=== PATIENT | female | born 1960 | race Caucasian/White ===

== ENCOUNTER 2017-03-07 10:16 | Emergency (ER) | payer BC, OTHER ==
[2017-03-07] MEDS ORDERED: Sodium Chloride 0.9% 10 ML Syringe FLUSH PRN (10:29)
[2017-03-07] MEDS ORDERED: Furosemide 40 MG/4 ML VIAL IVPUSH ONE (10:30)
--- NOTE | 2017-03-07 10:33 | EDM.PDOC ---
ED HPI GENERAL MEDICAL PROBLEM - General Chief Complaint: General Stated Complaint: IN BY AMBULANCE Time Seen by Provider: 03/07/17 10:25 Source of Information: Reports: Patient, EMS, Family ( and daughter), Old Records, Provider (Dr. Martinez), RN, RN Notes Reviewed History Limitations: Reports: Physical Impairment - History of Present Illness INITIAL COMMENTS - FREE TEXT/NARRATIVE: Arrives from home by ambulance with report that pt either fell or slid to the floor this morning after her had left the house and she could not get back up. found her on the floor approx. 45 minutes later. Pt was just discharged from [facility] a few days ago where she was admitted for abdominal pain and ascites. The family states they do not believe she was well enough to be discharged, but the [facility] hospitalist told them there was nothing more that could be done for her and sent her home. Since returning home she reports increasing abdominal size, weeping of clear/yellow fluid from the legs, and severe shortness of breath. Pt's has found her to be more confused than usual over the past few days. Denies fever or chills. Pt is able to give limited Hx due to dyspnea. Onset: Unknown/Unsure Onset Date: 03/07/17 Duration: Constant, Getting Worse Location: Reports: Chest, Generalized Severity: Severe Improves with: Reports: None Worsens with: Reports: None Generalized Pain Score (Numeric/FACES): 10 - Related Data Allergies Allergy/AdvReac Type Severity Reaction Status Date / Time No Known Allergies Allergy Verified 06/21/15 17:16 Home Meds: Home Meds Lactulose [Chronulac] 30 gm PO TID 10/21/14 [History] Potassium Chloride [Klor-Con M20] 20 meq PO TID 10/21/14 [History] Spironolactone [Aldactone] 50 mg PO BID 10/21/14 [History] Cyclobenzaprine [Flexeril] 10 mg PO TID PRN 04/11/15 [History] Pantoprazole Sodium 40 mg PO DAILY 04/11/15 [History] Zinc 1 mg PO DAILY 04/11/15 [History] Folic Acid 1 mg PO DAILY 05/21/15 [History] Furosemide 80 mg PO DAILY 05/21/15 [History] Ondansetron [Zofran ODT] 4 mg PO Q8H 05/21/15 [History] Prochlorperazine Maleate [Compazine] 10 mg PO Q6H 05/21/15 [History] Sennosides/Docusate Sodium [Senna-S] 1 tab PO DAILY 05/21/15 [History] Temazepam 30 mg PO BEDTIME 05/21/15 [History] Multivitamin [Multi-Day Vitamins] 1 tab PO DAILY 03/07/17 [History] Past Medical History HEENT History: Reports: None Cardiovascular History: Reports: None Respiratory History: Reports: None Gastrointestinal History: Reports: Cirrhosis, GERD Other Gastrointestinal History: autoimmune disease affecting liver Other Genitourinary History: 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, benign 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 Other Musculoskeletal History: DDD Neurological History: Reports: None Psychiatric History: Reports: None Endocrine/Metabolic History: Reports: Obesity/BMI 30+ Hematologic History: Reports: None Immunologic History: Reports: Other (See Below) Other Immunologic History: Auto-immune disease Oncologic (Cancer) History: Reports: None Dermatologic History: Reports: None - Past Surgical History HEENT Surgical History: Reports: None Cardiovascular Surgical History: Reports: None Female Surgical History: Reports: None Musculoskeletal Surgical History: Reports: None Social & Family History - Family History Family Medical History: Noncontributory - Tobacco Use Smoking Status *Q: Never Smoker Second Hand Smoke Exposure: No - Caffeine Use Caffeine Use: Reports: Coffee - Alcohol Use Days Per Week of Alcohol Use: 0 Number of Drinks Per Day: 1 Total Drinks Per Week: 0 - Recreational Drug Use Recreational Drug Use: No - Living Situation & Occupation Living situation: Reports: , with Spouse Occupation: Unemployed ED ROS GENERAL - Review of Systems Review Of Systems: ROS reveals no pertinent complaints other than HPI. ED EXAM, GENERAL - Physical Exam Exam: See Below Exam Limited By: Respiratory Distress General Appearance: Alert, Anxious, Mild Distress, Other (chronically ill and toxic appearing) Eye Exam: Bilateral Eye: EOMI, PERRL, Other (scleral icterus) Ears: Hearing Grossly Normal Nose: Normal Inspection, Normal Mucosa, No Blood Throat/Mouth: Normal Lips, Normal Oropharynx, Normal Voice, No Airway Compromise , Other (dry oral membranes) Head: Atraumatic, Normocephalic Neck: Normal Inspection, Non-Tender Respiratory/Chest: Chest Non-Tender, Decreased Breath Sounds (abscent breath sounds at left base), Crackles, Rales, Accessory Muscle Use Cardiovascular: Regular Rate, Rhythm GI/Abdominal: Soft, No Distention, Tender (generalized), Other (massive ascites fluid wave) (Female) Exam: Deferred Rectal (Female) Exam: Deferred Extremities: Other (+3 pitting edema at B/L lower to the pelvis with serous weeping at the lower legs) Neurological: Alert, Oriented (to person and place), CN II-XII Intact, Confused (slight confusion, mostly answers appropriately) Psychiatric: Anxious Skin Exam: Jaundice Course - Vital Signs Last Recorded V/S: Last Vital Signs Temp 36.6 C 03/07/17 10:23 Pulse 82 03/07/17 10:23 Resp 36 H 03/07/17 10:23 BP 85/49 L 03/07/17 10:23 Pulse Ox 100 03/07/17 10:23 BP improved to 130's systolic prior to transfer. - Orders/Labs/Meds Orders: Active Orders 24 hr Category Date Time Status Peripheral IV Care [RC] . DIRECTED Care 03/07/17 10:29 Active RT Aerosol Therapy [RC] ASDIRECTED Care 03/07/17 11:16 Active CULTURE BLOOD [BC] Stat Lab 03/07/17 10:40 Received CULTURE BLOOD [BC] Stat Lab 03/07/17 10:55 Received Levofloxacin/Dextrose 5%-Water [Levaquin in D5W 500 MG/ Med 03/07/17 11:29 Active 100 ML] 500 mg Premix Bag 1 bag IV ONETIME Sodium Chloride 0.9% [Saline Flush] Med 03/07/17 10:29 Active 10 ml FLUSH ASDIRECTED PRN Blood Culture x2 Reflex Set [OM.PC] Stat Oth 03/07/17 10:29 Ordered Peripheral IV Insertion Adult [OM.PC] Stat Oth 03/07/17 10:28 Ordered Medication Orders Levofloxacin/Dextrose 500 mg/ (Premix) 100 mls @ 100 mls/hr IV ONETIME ONE Stop: 03/07/17 12:28 Last Admin: 03/07/17 11:34 Dose: 100 mls/hr Sodium Chloride (Saline Flush) 10 ml FLUSH ASDIRECTED PRN PRN Reason: Keep Vein Open Last Admin: 03/07/17 10:41 Dose: 10 ml Labs: Laboratory Tests 03/07/17 03/07/17 03/07/17 Range/Units 10:36 10:36 10:40 WBC 16.5 H (5.0-10.0) 10^3/uL RBC 3.13 L (4.2-5.4) 10^6/uL Hgb 10.9 L (12.0-16.0) g/dL Hct 31.4 L (37.0-47.0) % MCV 100.3 H D (80-100) fL MCH 34.8 H (27.0-34.0) pg MCHC 34.7 (33.0-35.0) g/dL Plt Count 316 D (150-450) 10^3/uL Neut % (Auto) 78.0 H (42.2-75.2) % Lymph % (Auto) 9.7 L (20.5-50.1) % Cross % (Auto) 11.6 H (2-8) % Eos % (Auto) 0.4 L (1.0-3.0) % Baso % (Auto) 0.3 (0.0-1.0) % Add Manual Diff Yes Neutrophils % (Manual) 77 H (42-75) % Band Neutrophils % 5 % Lymphocytes % (Manual) 8 L (20-50) % Monocytes % (Manual) 10 H (2-8) % Target Cells 1+ slight [place] Cells PT (9.0-12.0) SEC INR (0.9-1.2) APTT (22.0-34.0) SEC Sodium (135-145) mmol/L Potassium (3.6-5.0) mmol/L Chloride (101-111) mmol/L Carbon Dioxide (21.0-31.0) mmol/L Anion Gap BUN (7-18) mg/dL Creatinine (0.6-1.3) mg/dL Est Cr Clr Drug Dosing mL/min Estimated GFR (MDRD) BUN/Creatinine Ratio Glucose (74-105) mg/dL Lactic Acid (0.5-2.2) mmol/L Calcium (8.4-10.2) mg/dl Total Bilirubin (0.2-1.0) mg/dL AST (10-42) IU/L ALT (10-60) IU/L Alkaline Phosphatase (42-121) IU/L Ammonia (11-35) umol/L B-Natriuretic Peptide (0-100) pg/ml Total Protein (6.7-8.2) g/dl Albumin (3.2-5.5) g/dl Globulin Albumin/Globulin Ratio Amylase (28-100) U/L Lipase (22-51) U/L Urine Color Straw (YELLOW) Urine Appearance Slightly cloudy (CLEAR) Urine pH 5.0 (5.0-9.0) Ur Specific Stella 1.020 (1.005-1.030) Urine Protein Negative (NEGATIVE) Urine Glucose (UA) Negative (NEGATIVE) Urine Ketones Negative (NEGATIVE) Urine Occult Blood Trace-lysed H (NEGATIVE) Urine Nitrite Negative (NEGATIVE) Urine Bilirubin Small H (NEGATIVE) Urine Urobilinogen 0.2 (0.2-1.0) mg/dL Ur Leukocyte Esterase Negative (NEGATIVE) Urine RBC 0-5 /HPF Urine WBC 0-5 (0-5/HPF) /HPF Ur Epithelial Cells Moderate H /HPF Urine Bacteria Few (0-FEW/HPF) /HPF Hyaline Casts See note /LPF Urine Mucus Occasional /LPF Urine Opiates Screen Negative (NEGATIVE) Ur Oxycodone Screen Positive H (NEGATIVE) Urine Methadone Screen Negative (NEGATIVE) Ur Barbiturates Screen Negative (NEGATIVE) U Tricyclic Antidepress Positive H (NEGATIVE) Ur Phencyclidine Scrn Negative (NEGATIVE) Ur Amphetamine Screen Negative (NEGATIVE) U Methamphetamines Scrn Negative (NEGATIVE) Urine MDMA Screen Negative (NEGATIVE) U Benzodiazepines Scrn Negative (NEGATIVE) Urine Cocaine Screen Negative (NEGATIVE) U Marijuana (THC) Screen Negative (NEGATIVE) 03/07/17 03/07/17 03/07/17 Range/Units 10:40 10:40 10:40 WBC (5.0-10.0) 10^3/uL RBC (4.2-5.4) 10^6/uL Hgb (12.0-16.0) g/dL Hct (37.0-47.0) % MCV (80-100) fL MCH (27.0-34.0) pg MCHC (33.0-35.0) g/dL Plt Count (150-450) 10^3/uL Neut % (Auto) (42.2-75.2) % Lymph % (Auto) (20.5-50.1) % Cross % (Auto) (2-8) % Eos % (Auto) (1.0-3.0) % Baso % (Auto) (0.0-1.0) % Add Manual Diff Neutrophils % (Manual) (42-75) % Band Neutrophils % % Lymphocytes % (Manual) (20-50) % Monocytes % (Manual) (2-8) % Target Cells [place] Cells PT 15.2 H (9.0-12.0) SEC INR 1.5 H (0.9-1.2) APTT 32.5 (22.0-34.0) SEC Sodium 129 L (135-145) mmol/L Potassium 7.9 H* D (3.6-5.0) mmol/L Chloride 99 L (101-111) mmol/L Carbon Dioxide 14.0 L (21.0-31.0) mmol/L Anion Gap 23.9 BUN 55 H D (7-18) mg/dL Creatinine 3.9 H D (0.6-1.3) mg/dL Est Cr Clr Drug Dosing 11.71 mL/min Estimated GFR (MDRD) 12 BUN/Creatinine Ratio 14.10 Glucose 106 H (74-105) mg/dL Lactic Acid (0.5-2.2) mmol/L Calcium 8.8 (8.4-10.2) mg/dl Total Bilirubin 15.8 H (0.2-1.0) mg/dL AST 456 H (10-42) IU/L ALT 115 H (10-60) IU/L Alkaline Phosphatase 170 H (42-121) IU/L Ammonia 29 (11-35) umol/L B-Natriuretic Peptide 614 H (0-100) pg/ml Total Protein 6.3 L (6.7-8.2) g/dl Albumin 2.3 L (3.2-5.5) g/dl Globulin 4.0 Albumin/Globulin Ratio 0.58 Amylase 168 H (28-100) U/L Lipase 147 H (22-51) U/L Urine Color (YELLOW) Urine Appearance (CLEAR) Urine pH (5.0-9.0) Ur Specific Stella (1.005-1.030) Urine Protein (NEGATIVE) Urine Glucose (UA) (NEGATIVE) Urine Ketones (NEGATIVE) Urine Occult Blood (NEGATIVE) Urine Nitrite (NEGATIVE) Urine Bilirubin (NEGATIVE) Urine Urobilinogen (0.2-1.0) mg/dL Ur Leukocyte Esterase (NEGATIVE) Urine RBC /HPF Urine WBC (0-5/HPF) /HPF Ur Epithelial Cells /HPF Urine Bacteria (0-FEW/HPF) /HPF Hyaline Casts /LPF Urine Mucus /LPF Urine Opiates Screen (NEGATIVE) Ur Oxycodone Screen (NEGATIVE) Urine Methadone Screen (NEGATIVE) Ur Barbiturates Screen (NEGATIVE) U Tricyclic Antidepress (NEGATIVE) Ur Phencyclidine Scrn (NEGATIVE) Ur Amphetamine Screen (NEGATIVE) U Methamphetamines Scrn (NEGATIVE) Urine MDMA Screen (NEGATIVE) U Benzodiazepines Scrn (NEGATIVE) Urine Cocaine Screen (NEGATIVE) U Marijuana (THC) Screen (NEGATIVE) 03/07/17 Range/Units 10:40 WBC (5.0-10.0) 10^3/uL RBC (4.2-5.4) 10^6/uL Hgb (12.0-16.0) g/dL Hct (37.0-47.0) % MCV (80-100) fL MCH (27.0-34.0) pg MCHC (33.0-35.0) g/dL Plt Count (150-450) 10^3/uL Neut % (Auto) (42.2-75.2) % Lymph % (Auto) (20.5-50.1) % Cross % (Auto) (2-8) % Eos % (Auto) (1.0-3.0) % Baso % (Auto) (0.0-1.0) % Add Manual Diff Neutrophils % (Manual) (42-75) % Band Neutrophils % % Lymphocytes % (Manual) (20-50) % Monocytes % (Manual) (2-8) % Target Cells [place] Cells PT (9.0-12.0) SEC INR (0.9-1.2) APTT (22.0-34.0) SEC Sodium (135-145) mmol/L Potassium (3.6-5.0) mmol/L Chloride (101-111) mmol/L Carbon Dioxide (21.0-31.0) mmol/L Anion Gap BUN (7-18) mg/dL Creatinine (0.6-1.3) mg/dL Est Cr Clr Drug Dosing mL/min Estimated GFR (MDRD) BUN/Creatinine Ratio Glucose (74-105) mg/dL Lactic Acid 5.3 H (0.5-2.2) mmol/L Calcium (8.4-10.2) mg/dl Total Bilirubin (0.2-1.0) mg/dL AST (10-42) IU/L ALT (10-60) IU/L Alkaline Phosphatase (42-121) IU/L Ammonia (11-35) umol/L B-Natriuretic Peptide (0-100) pg/ml Total Protein (6.7-8.2) g/dl Albumin (3.2-5.5) g/dl Globulin Albumin/Globulin Ratio Amylase (28-100) U/L Lipase (22-51) U/L Urine Color (YELLOW) Urine Appearance (CLEAR) Urine pH (5.0-9.0) Ur Specific Stella (1.005-1.030) Urine Protein (NEGATIVE) Urine Glucose (UA) (NEGATIVE) Urine Ketones (NEGATIVE) Urine Occult Blood (NEGATIVE) Urine Nitrite (NEGATIVE) Urine Bilirubin (NEGATIVE) Urine Urobilinogen (0.2-1.0) mg/dL Ur Leukocyte Esterase (NEGATIVE) Urine RBC /HPF Urine WBC (0-5/HPF) /HPF Ur Epithelial Cells /HPF Urine Bacteria (0-FEW/HPF) /HPF Hyaline Casts /LPF Urine Mucus /LPF Urine Opiates Screen (NEGATIVE) Ur Oxycodone Screen (NEGATIVE) Urine Methadone Screen (NEGATIVE) Ur Barbiturates Screen (NEGATIVE) U Tricyclic Antidepress (NEGATIVE) Ur Phencyclidine Scrn (NEGATIVE) Ur Amphetamine Screen (NEGATIVE) U Methamphetamines Scrn (NEGATIVE) Urine MDMA Screen (NEGATIVE) U Benzodiazepines Scrn (NEGATIVE) Urine Cocaine Screen (NEGATIVE) U Marijuana (THC) Screen (NEGATIVE) Meds: Medications Generic Name Dose Route Start Last Admin Trade Name Freq PRN Reason Stop Dose Admin Levofloxacin/Dextrose 500 mg/ 100 mls @ 100 mls/hr 03/07/17 11:29 03/07/17 11 :34 Premix IV 03/07/17 12:28 100 mls/hr ONETIME ONE Administration Sodium Chloride 10 ml 03/07/17 10:29 03/07/17 10:41 Saline Flush FLUSH 10 ml ASDIRECTED PRN Administration Keep Vein Open Discontinued Medications Generic Name Dose Route Start Last Admin Trade Name Dago PRN Reason Stop Dose Admin Albuterol 10 mg 03/07/17 11:15 03/07/17 11:28 Proventil Neb Soln NEB 03/07/17 11:16 10 mg ONETIME ONE Administration Calcium Chloride 1 gm 03/07/17 11:18 03/07/17 11:27 Calcium Chloride 10% IVPUSH 03/07/17 11:19 1 gm ONETIME ONE Administration Furosemide 60 mg 03/07/17 10:30 03/07/17 10:41 Lasix IVPUSH 03/07/17 10:31 60 mg NOW ONE Administration Sodium Bicarbonate 50 meq 03/07/17 11:33 03/07/17 11:38 Sodium Bicarbonate 8.4% IVPUSH 03/07/17 11:34 50 meq ONETIME ONE Administration Sodium Polystyrene Sulfonate 45 gm 03/07/17 11:16 03/07/17 11:27 Kayexalate PO 03/07/17 11:17 45 gm NOW ONE Administration - Radiology Interpretation Free Text/Narrative:: CXR: poor insp. effort, large left base infiltrate/effusion, see Rad. report. - Re-Assessments/Exams Free Text/Narrative Re-Assessment/Exam: 03/07/17 12:05 I explained to the pt's and daughter the exam and lab findings and that the pt's condition is critical. Airlift cannot fly due to weather/temperature. Ground transportation is present to transfer pt. to [facility] with Dr. Frederick accepting the pt as a direct admit to the ICU. Dr. Frederick has been up dated regarding the pt's condition and lab/xray results. Departure - Departure Time of Disposition: 11:00 Disposition: DC/Tfer to Acute Hospital 02 Condition: Critical Clinical Impression: Sepsis due to pneumonia, Autoimmune liver disease, Hyperkalemia, Hepatorenal failure Cirrhosis of liver with ascites Qualifiers: Hepatic cirrhosis type: unspecified hepatic cirrhosis Qualified Code(s): K74.60 - Unspecified cirrhosis of liver - Discharge Information Forms: ED Department Discharge, Interfacility Transfer EMTALA - My Orders Last 24 Hours: My Active Orders 03/07/17 10:28 Peripheral IV Insertion Adult [OM.PC] Stat 03/07/17 10:29 Peripheral IV Care [RC] . DIRECTED Sodium Chloride 0.9% [Saline Flush] 10 ml FLUSH ASDIRECTED PRN Blood Culture x2 Reflex Set [OM.PC] Stat 03/07/17 10:40 CULTURE BLOOD [BC] Stat 03/07/17 10:55 CULTURE BLOOD [BC] Stat 03/07/17 11:16 RT Aerosol Therapy [RC] ASDIRECTED 03/07/17 11:29 Levofloxacin/Dextrose 5%-Water [Levaquin in D5W 500 MG/100 ML] 500 mg Premix Bag 1 bag IV ONETIME - Assessment/Plan Last 24 Hours: My Active Orders 03/07/17 10:28 Peripheral IV Insertion Adult [OM.PC] Stat 03/07/17 10:29 Peripheral IV Care [RC] . DIRECTED Sodium Chloride 0.9% [Saline Flush] 10 ml FLUSH ASDIRECTED PRN Blood Culture x2 Reflex Set [OM.PC] Stat 03/07/17 10:40 CULTURE BLOOD [BC] Stat 03/07/17 10:55 CULTURE BLOOD [BC] Stat 03/07/17 11:16 RT Aerosol Therapy [RC] ASDIRECTED 03/07/17 11:29 Levofloxacin/Dextrose 5%-Water [Levaquin in D5W 500 MG/100 ML] 500 mg Premix Bag 1 bag IV ONETIME
[2017-03-07 10:39] VITALS: BP 85/49
--- NOTE | 2017-03-07 11:07 | CR ---
Clinical history: 56-year-old dyspneic female. Interpretation: Upright AP portable chest film (rotation) is abnormal. Less than optimal inspiratory effort this pickwickian appearing patient with asymmetric new left lowe r lobe consolidation compared to 06 December 2013 exam. Clinical pneumonia? Serum D dimer? Blunting costophrenic sulci possibly reflecting poor inspiratory effort. No increase in heart size or signs of alveolar edema. No other focal lobar consolidation, lung mass or hilar lymphadenopathy.
[2017-03-07] MEDS ORDERED: Albuterol 0.083% 2.5 MG/3 ML Neb Soln NEB ONE (11:15)
[2017-03-07] MEDS ORDERED: Sodium Polystyrene Sulfonate 15 GM/60 ML Susp 60 ML Bot PO ONE (11:16)
[2017-03-07] MEDS ORDERED: Calcium Chloride 10% 1 GM/10 ML Syringe IVPUSH ONE (11:18)
[2017-03-07] MEDS ORDERED: Levofloxacin/Dextrose 5%-Water 500 MG in Premix Bag 1 BAG IV ONE (11:29)
[2017-03-07] MEDS ORDERED: Sodium Bicarbonate 8.4% 50 MEQ/50 ML Syringe IVPUSH ONE (11:33)
== END 2017-03-07 11:57 ==
LOC: DL.ED 10:16
DX: A41.9 Sepsis, unspecified organism (principal); J18.9 Pneumonia, unspecified organism; K76.7 Hepatorenal syndrome; K74.60 Unspecified cirrhosis of liver; Z79.899 Other long term (current) drug therapy
CPT/HCPCS: 36415; 71010; 80053; 80305; 81001; 82140; 82150; 83605; 83690; 83880; 85025; 85610; 85730; 87040; 96374; 96375; 99285; A9270; J1940; J1956; J7050; J7620

== ENCOUNTER 2017-06-04 11:14 | Inpatient (IN) | payer BC, MEDICARE ==
--- NOTE | 2017-06-04 16:04 | PCM.HP ---
H&P History of Present Illness - General Date of Service: 06/04/17 Admit Problem/Dx: Admission Diagnosis/Problem Admission Diagnosis/Problem Weakness Source of Information: Patient History Limitations: Reports: No Limitations - History of Present Illness Initial Comments - Free Text/Narative: The patient is a 56-year-old lady who presented with right-sided chest pain associated with shortness of breath. She was found to have right-sided pleural effusion It is in the setting of recent liver transplant for nonalcoholic steatohepatitis ( CORCORAN). She had placement of a right-sided chest tube because of pleural effusion. The patient became weak during hospitalization. She is transferred to [facility] for physical and occupational therapy. At this time the patient offers no new complaints. Indicates that she feels weak Onset of Symptoms: Reports: Gradual Duration of Symptoms: Reports: Constant Severity: Moderate Context: Reports: Other Associated Symptoms: Reports: Malaise - Related Data Allergies/Adverse Reactions: Allergies Allergy/AdvReac Type Severity Reaction Status Date / Time No Known Allergies Allergy Verified 06/21/15 17:16 Home Medications: Home Meds Lactulose [Chronulac] 30 gm PO TID 10/21/14 [History] Potassium Chloride [Klor-Con M20] 20 meq PO TID 10/21/14 [History] Spironolactone [Aldactone] 50 mg PO BID 10/21/14 [History] Cyclobenzaprine [Flexeril] 10 mg PO TID PRN 04/11/15 [History] Pantoprazole Sodium 40 mg PO DAILY 04/11/15 [History] Zinc 1 mg PO DAILY 04/11/15 [History] Folic Acid 1 mg PO DAILY 05/21/15 [History] Furosemide 80 mg PO DAILY 05/21/15 [History] Ondansetron [Zofran ODT] 4 mg PO Q8H 05/21/15 [History] Prochlorperazine Maleate [Compazine] 10 mg PO Q6H 05/21/15 [History] Sennosides/Docusate Sodium [Senna-S] 1 tab PO DAILY 05/21/15 [History] Temazepam 30 mg PO BEDTIME 05/21/15 [History] Multivitamin [Multi-Day Vitamins] 1 tab PO DAILY 03/07/17 [History] Past Medical History HEENT History: Reports: None Cardiovascular History: Reports: Afib Other Cardiovascular History: a-fib after surgery 03/19/17 Respiratory History: Reports: None Gastrointestinal History: Reports: Cirrhosis, GERD Other Gastrointestinal History: autoimmune disease affecting liver Other Genitourinary History: 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, benign 2014 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 Musculoskeletal History: Reports: Back Pain, Chronic Other Musculoskeletal History: DDD Neurological History: Reports: None Psychiatric History: Reports: None Endocrine/Metabolic History: Reports: Obesity/BMI 30+ Hematologic History: Reports: Blood Transfusion(s) Immunologic History: Reports: Other (See Below) Other Immunologic History: Auto-immune disease Oncologic (Cancer) History: Reports: None Dermatologic History: Reports: None - Past Surgical History HEENT Surgical History: Reports: None Cardiovascular Surgical History: Reports: None GI Surgical History: Reports: Other (See Below) Other GI Surgeries/Procedures: liver transplant 03/19/17 Female Surgical History: Reports: None Musculoskeletal Surgical History: Reports: None Social & Family History - Family History Family Medical History: Noncontributory - Tobacco Use Smoking Status *Q: Never Smoker Second Hand Smoke Exposure: No - Caffeine Use Caffeine Use: Reports: Coffee, Soda - Alcohol Use Days Per Week of Alcohol Use: 0 Number of Drinks Per Day: 1 Total Drinks Per Week: 0 - Recreational Drug Use Recreational Drug Use: No - Living Situation & Occupation Living situation: Reports: , with Spouse Occupation: Unemployed H&P Review of Systems - Review of Systems: Review Of Systems: See Below General: Reports: No Symptoms HEENT: Reports: No Symptoms Pulmonary: Reports: No Symptoms Cardiovascular: Reports: No Symptoms Gastrointestinal: Reports: No Symptoms Musculoskeletal: Reports: No Symptoms Skin: Reports: No Symptoms Psychiatric: Reports: No Symptoms Neurological: Reports: No Symptoms Exam - Exam Exam: See Below - Vital Signs Vital Signs: Last Vital Signs Temp 36.8 C 06/04/17 15:13 Pulse 66 06/04/17 15:13 Resp 20 06/04/17 15:13 BP 125/62 06/04/17 15:13 Pulse Ox 99 06/04/17 15:13 Weight: 63.276 kg - Exam General: Alert, Oriented HEENT: Conjunctiva Clear Neck: Supple Lungs: Clear to Auscultation, Decreased Breath Sounds Cardiovascular: Regular Rate, Regular Rhythm GI/Abdominal Exam: Soft, Non-Tender Extremities: Pedal Edema Psychiatric: Alert, Normal Affect *Q Meaningful Use (ADM) - VTE *Q VTE Criteria *Q: - Stroke *Q Stroke Criteria *Q: - AMI *Q AMI Criteria *Q: Problem List Initiated/Reviewed/Updated: Yes Orders Last 24hrs: Active Orders 24 hr Category Date Time Status Patient Status [ADT] Routine ADT 06/04/17 15:47 Ordered Oxygen Therapy [RC] PRN Care 06/04/17 15:47 Ordered Up ad Tammy [RC] ASDIRECTED Care 06/04/17 15:46 Ordered VTE/DVT Education [RC] PER UNIT ROUTINE Care 06/04/17 15:47 Ordered Vital Signs [RC] Q8H Care 06/04/17 15:46 Ordered OT Evaluation and Treatment [CONS] Routine Cons 06/04/17 15:46 Ordered PT Evaluation and Treatment [CONS] Routine Cons 06/04/17 15:46 Ordered Regular Diet [DIET] Diet 06/04/17 Lunch Ordered BASIC METABOLIC PANEL,BMP [CHEM] AM Lab 06/05/17 05:11 Ordered CBC WITH AUTO DIFF [HEME] AM Lab 06/05/17 05:11 Ordered Mycophenolate Mofetil [Cellcept] Med 06/04/17 21:00 Ordered 1,000 mg PO BID Ondansetron [Zofran ODT] Med 06/04/17 15:46 Ordered 4 mg PO Q6H PRN Sulfamethoxazole/Trimethoprim [Septra DS] Med 06/05/17 09:00 Ordered 1 tab PO DAILY predniSONE Med 06/05/17 09:00 Ordered 5 mg PO DAILY Resuscitation Status Routine Resus Stat 06/04/17 15:46 Ordered Medication Orders Mycophenolate Mofetil (Cellcept) 1,000 mg PO BID DARIN Ondansetron HCl (Zofran Odt) 4 mg PO Q6H PRN PRN Reason: nausea, able to take PO Prednisone (Prednisone) 5 mg PO DAILY DARIN Trimethoprim/Sulfamethoxazole (Septra Ds) 1 tab PO DAILY DARIN Assessment/Plan Comment:: 1. Right-sided pleural effusion. This is likely causing the shortness of breath and chest pain. S/p Thoracentesis - transudative fluid Removed Chest tube Continue lasix Follow elytes and CXR periodically 2. Recent right internal jugular subclavian and axillary deep venous thrombosis. Resumed Coumadin - Adjust coumadin dose daily depending on INR for target INR 2-3 3. Metabolic acidosis, likely due to liver transplant. stable Monitor periodically 4. Liver transplant. We will continue antirejection medications including prednisone, CellCept, and Prograf. Diffuse abd/ lower chest pain use~MSContin bid Cont dilaudid PO prn The patient is significantly immunocompromised with these. We will continue Bactrim and valganciclovir. 5. History of anxiety. Continue Zoloft. 6. Leukopenia, likely due to antirejection medications. 7. Anemia. Severe on admission likely a combination of blood loss anemia from recent [facility] stay, anemia of chronic disease Was transfused 2 u prbc on 05/28 iron, b12: ok low folate - cont to replace
[2017-06-04] MEDS ORDERED: Mycophenolate Mofetil 250 MG Cap PO SCH (17:00)
[2017-06-04] MEDS: TACROLIMUS 1 MG PO SCH (21:33)
[2017-06-04] MEDS: LORazepam 0.5 MG Tab PO PRN (21:33)
[2017-06-04] MEDS: Morphine 30 MG Tab.ER PO SCH (21:33)
[2017-06-05] MEDS ORDERED: VALGANCICLOVIR 450 MG PO SCH (08:00)
[2017-06-05 10:04] LABS: CHLORIDE,CL 110 mmol/L (101-111); SODIUM,NA 137 mmol/L (135-145)
[2017-06-05] MEDS: MYCOPHENOLATE MOFETIL 500 MG PO SCH ×3 (10:25→21:16)
[2017-06-05] MEDS: predniSONE 5 MG Tab PO SCH (10:25)
[2017-06-05] MEDS: Sulfamethoxazole/Trimethoprim 800-160 MG Tab PO SCH (10:25)
[2017-06-05] MEDS: Morphine 30 MG Tab.ER PO SCH ×2 (10:25→20:54)
[2017-06-05] MEDS: TACROLIMUS 1 MG PO SCH ×2 (10:25→20:56)
[2017-06-05] MEDS ORDERED: Morphine 30 MG Tab.ER PO ONE (11:59)
[2017-06-05] MEDS ORDERED: predniSONE 5 MG Tab PO ONE (11:59)
[2017-06-05] MEDS ORDERED: Sulfamethoxazole/Trimethoprim 800-160 MG Tab PO ONE (11:59)
[2017-06-05] MEDS ORDERED: Warfarin 2 MG Tab PO ONE (20:05)
[2017-06-05] MEDS: LORazepam 0.5 MG Tab PO PRN (20:55)
[2017-06-05] MEDS: VALGANCICLOVIR 450 MG PO SCH (21:11)
[2017-06-06] MEDS: HYDROmorphone 2 MG Tab PO PRN ×4 (02:06→17:53)
[2017-06-06] MEDS: TACROLIMUS 1 MG PO SCH ×2 (09:00→20:55)
[2017-06-06] MEDS: Sulfamethoxazole/Trimethoprim 800-160 MG Tab PO SCH (09:00)
[2017-06-06] MEDS: predniSONE 5 MG Tab PO SCH (09:00)
[2017-06-06] MEDS: Morphine 30 MG Tab.ER PO SCH ×2 (09:00→20:54)
[2017-06-06] MEDS: MYCOPHENOLATE MOFETIL 500 MG PO SCH ×2 (09:01→20:55)
[2017-06-06] MEDS ORDERED: Ondansetron 4 MG Tab.DIS PO PRN (10:06)
[2017-06-06] MEDS ORDERED: Loperamide 2 MG Cap PO PRN (10:06)
[2017-06-06] MEDS ORDERED: Acetaminophen 500 MG Tab PO PRN (10:06)
[2017-06-06] MEDS ORDERED: LORazepam 0.5 MG Tab PO PRN (10:06)
[2017-06-06] MEDS: Multivitamins,Therapeutic Tab PO SCH (12:24)
[2017-06-06] MEDS: Folic Acid 1 MG Tab PO SCH (12:24)
[2017-06-06] MEDS: Furosemide 20 MG Tab PO SCH (12:24)
[2017-06-06] MEDS: Pantoprazole 40 MG Tab.CR PO SCH (12:24)
[2017-06-06] MEDS: Aspirin 81 MG Tab.EC PO SCH (12:24)
[2017-06-06] MEDS: Polyethylene Glycol 3350 Powder 17 GM Packet PO SCH (12:25)
[2017-06-06] MEDS: Potassium Chloride 10 MEQ Tab.ER PO SCH (12:25)
[2017-06-06] MEDS: Metoprolol Succinate 25 MG Tab.ER PO SCH (12:25)
[2017-06-06] MEDS: Sertraline 50 MG Tab PO SCH (12:25)
[2017-06-06] MEDS ORDERED: Warfarin 2 MG Tab PO SCH (14:00)
[2017-06-06] MEDS: Ondansetron 4 MG Tab.DIS PO PRN (15:45)
[2017-06-06] MEDS: VALGANCICLOVIR 450 MG PO SCH (20:56)
[2017-06-06] MEDS: LORazepam 0.5 MG Tab PO PRN (20:58)
[2017-06-06] MEDS ORDERED: Non-Formulary Medication 1 Each (Magnesium Oxide [Magnesium Oxide] 400 MG) PO SCH (21:00)
[2017-06-07] MEDS: HYDROmorphone 2 MG Tab PO PRN (02:12)
[2017-06-07] MEDS: Pantoprazole 40 MG Tab.CR PO SCH (05:33)
[2017-06-07] MEDS: Sertraline 50 MG Tab PO SCH (08:51)
[2017-06-07] MEDS: Metoprolol Succinate 25 MG Tab.ER PO SCH (08:51)
[2017-06-07] MEDS: TACROLIMUS 1 MG PO SCH ×2 (08:51→21:13)
[2017-06-07] MEDS: predniSONE 5 MG Tab PO SCH (08:51)
[2017-06-07] MEDS: Multivitamins,Therapeutic Tab PO SCH (08:51)
[2017-06-07] MEDS: Sulfamethoxazole/Trimethoprim 800-160 MG Tab PO SCH (08:51)
[2017-06-07] MEDS: MYCOPHENOLATE MOFETIL 500 MG PO SCH ×2 (08:52→21:14)
[2017-06-07] MEDS: Morphine 30 MG Tab.ER PO SCH (09:00)
[2017-06-07] MEDS: Ondansetron 4 MG Tab.DIS PO PRN (09:49)
[2017-06-07] MEDS ORDERED: Polyethylene Glycol 3350 Powder 17 GM Packet PO PRN (10:29)
[2017-06-07] MEDS: Polyethylene Glycol 3350 Powder 17 GM Packet PO SCH (10:40)
[2017-06-07] MEDS: Folic Acid 1 MG Tab PO SCH (10:48)
[2017-06-07] MEDS: Aspirin 81 MG Tab.EC PO SCH (10:48)
[2017-06-07 11:32] LABS: CHLORIDE,CL 108 mmol/L (101-111); SODIUM,NA 137 mmol/L (135-145)
--- NOTE | 2017-06-07 11:35 | CR ---
Clinical history: 56-year-old female with chest pain and cough. Interpretation: Abnormal. Asymmetric dense increased accumulation of dependent pleural fluid (effusion) right lung base since m ost recent chest film 07 March 2017. Some patchy underlying atelectasis but no lung mass or focal lobar pneumonia. Pulmonary infarct? D dimer? Normal cardiac silhouette without cephalization of vascular flow, signs of alveolar edema or dependen t pleural effusion on the left. No rib fracture. No pneumothorax or free subdiaphragmatic air.
[2017-06-07] MEDS: Furosemide 20 MG Tab PO SCH (13:21)
[2017-06-07] MEDS: Potassium Chloride 10 MEQ Tab.ER PO SCH (13:22)
[2017-06-07] MEDS: Phosphorus #1 250 MG Tab PO SCH (21:11)
[2017-06-07] MEDS: Morphine 15 MG Tab.ER PO SCH (21:12)
[2017-06-07] MEDS: VALGANCICLOVIR 450 MG PO SCH (21:13)
[2017-06-07] MEDS: LORazepam 0.5 MG Tab PO PRN (22:33)
[2017-06-07] MEDS: Acetaminophen 325 MG Tab PO PRN (22:33)
[2017-06-08] MEDS: Acetaminophen 325 MG Tab PO PRN ×2 (05:39→19:52)
[2017-06-08] MEDS: Pantoprazole 40 MG Tab.CR PO SCH (05:39)
[2017-06-08 07:21] LABS: CHLORIDE,CL 109 mmol/L (101-111); SODIUM,NA 138 mmol/L (135-145)
[2017-06-08] MEDS: Morphine 15 MG Tab.ER PO SCH ×2 (09:05→21:06)
[2017-06-08] MEDS: Furosemide 20 MG Tab PO SCH (09:06)
[2017-06-08] MEDS: Folic Acid 1 MG Tab PO SCH (09:06)
[2017-06-08] MEDS: Metoprolol Succinate 25 MG Tab.ER PO SCH (09:06)
[2017-06-08] MEDS: Sertraline 50 MG Tab PO SCH (09:06)
[2017-06-08] MEDS: Sulfamethoxazole/Trimethoprim 800-160 MG Tab PO SCH (09:06)
[2017-06-08] MEDS: predniSONE 5 MG Tab PO SCH (09:06)
[2017-06-08] MEDS: Phosphorus #1 250 MG Tab PO SCH ×2 (09:06→21:02)
[2017-06-08] MEDS: MYCOPHENOLATE MOFETIL 500 MG PO SCH ×2 (09:07→21:04)
[2017-06-08] MEDS: Aspirin 81 MG Tab.EC PO SCH (09:07)
[2017-06-08] MEDS: Potassium Chloride 10 MEQ Tab.ER PO SCH (09:07)
[2017-06-08] MEDS: Multivitamins,Therapeutic Tab PO SCH (09:07)
[2017-06-08] MEDS: TACROLIMUS 1 MG PO SCH ×2 (09:07→21:03)
[2017-06-08] MEDS: VALGANCICLOVIR 450 MG PO SCH (21:02)
[2017-06-08] MEDS: LORazepam 0.5 MG Tab PO PRN (21:02)
[2017-06-09] MEDS: Acetaminophen 325 MG Tab PO PRN (03:24)
[2017-06-09] MEDS: Pantoprazole 40 MG Tab.CR PO SCH (06:10)
[2017-06-09 07:51] VITALS: BP 131/63
[2017-06-09] MEDS: predniSONE 5 MG Tab PO SCH (09:12)
[2017-06-09] MEDS: Metoprolol Succinate 25 MG Tab.ER PO SCH (09:12)
[2017-06-09] MEDS: Folic Acid 1 MG Tab PO SCH (09:12)
[2017-06-09] MEDS: Furosemide 20 MG Tab PO SCH (09:13)
[2017-06-09] MEDS: Morphine 15 MG Tab.ER PO SCH (09:13)
[2017-06-09] MEDS: Potassium Chloride 10 MEQ Tab.ER PO SCH (09:13)
[2017-06-09] MEDS: Aspirin 81 MG Tab.EC PO SCH (09:13)
[2017-06-09] MEDS: Phosphorus #1 250 MG Tab PO SCH (09:13)
[2017-06-09] MEDS: Sertraline 50 MG Tab PO SCH (09:14)
[2017-06-09] MEDS: MYCOPHENOLATE MOFETIL 500 MG PO SCH (09:14)
[2017-06-09] MEDS: Sulfamethoxazole/Trimethoprim 800-160 MG Tab PO SCH (09:14)
[2017-06-09] MEDS: Multivitamins,Therapeutic Tab PO SCH (09:14)
[2017-06-09] MEDS: TACROLIMUS 1 MG PO SCH (09:15)
--- NOTE | 2017-06-09 12:05 | DISCH ---
ADMITTING DIAGNOSIS: The patient admitted to [facility] for generalized debility and weakness, to continue physical therapy while in the Swing Bed. DISCHARGE DIAGNOSES: 1. Right-sided pleural effusion, worsening while at the Swing Bed, requiring chest tube placement. 2. 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 3. Status post liver transplant, on multiple immunosuppressive therapies including prednisone. HISTORY OF PRESENT ILLNESS: Mrs. Betsey Cody is a 56-year-old female with a medical history significant for nonalcoholic steatohepatitis, requiring liver transplant at [facility]. The patient had complications with right-sided pleural effusion, requiring chest tube placement at [facility] and got discharged to the Swing Bed for continued physical therapy and occupational therapy as she continues to have weakness and tiredness. While at [facility], she was continued on physical therapy and occupational therapy, but the patient was complaining of right-sided chest pain and discomfort. Repeat chest x-ray shows worsening of right-sided pleural effusion and congestion and possible opacities, so the patient is being transferred back to [facility] for possible chest tube placement and evaluation by Infectious Disease team and also possibly getting a CT scan of the chest after the chest tube is placed to rule out any underlying infectious process. The patient remained hemodynamically stable on this admission. She is afebrile and no signs of infection identified. She continues to have neutropenia. She is discharged to [facility] in stable condition. PHYSICAL EXAMINATION: On the day of discharge: Vital Signs: Temperature of 97.1, pulse of 70, blood pressure 131/63, respiratory rate of 20, and saturating at 95% on room air. General Appearance: The patient is well oriented to time, place, and person. Follows commands spontaneously. Cardiovascular System: S1 and S2 heard with normal intensity. No gallops. Respiratory System: Clear to auscultation bilaterally except for crepitations at the bases. Dull to percussion of the right lower lobe. No wheeze. Abdomen: Soft. Bowel sounds positive. Nontender. No rigidity. Extremities: No edema in the bilateral lower extremities. Neurology: No gross focal neurological deficit. DISCHARGE MEDICATIONS: Include: 1. Tylenol 325 mg every 6 hours as needed for pain. 2. Aspirin 81 mg daily. 3. Folic acid 1 mg daily. 4. Lasix 20 mg daily. 5. Lorazepam 0.5 mg 3 times a day as needed for anxiety. 6. Magnesium oxide 400 mg daily. 7. Toprol-XL 12.5 mg daily. 8. Morphine sulfate Contin 15 mg oral q.12 hourly. 9. Multivitamin 1 tablet daily. 10.Mycophenolate 1000 mg twice a day. 11.Zofran 4 mg every 6 hours as needed for nausea. 12.Protonix 40 mg daily. 13.K-Phos 250 mg daily. 14.Polyethylene glycol 17 g oral daily. 15.Potassium chloride 20 mEq daily. 16.Zoloft 50 mg daily. 17.Bactrim 400/80 mg 1 tablet daily. 18.Tacrolimus 2 mg oral twice a day. 19.Coumadin 2 mg daily. 20.Prednisone 5 mg oral daily, alternating with tapered dose to 2.5 mg starting on 06/18/2017. 21.Valacyclovir 450 mg daily. CONDITION ON ADMISSION: Good. CONDITION ON DISCHARGE: Stable. ACTIVITY: As tolerated. DIET: Cardiac healthy diet. FOLLOWUP: Follow up with primary care physician in [address] [facility]. DISPOSITION: The patient is discharged to [facility] for a possible chest tube placement. TIME SPENT: Spent over 35 minutes of time in evaluating and treating this patient and making discharge plans. [facility] /[id number]
[2017-06-09] MEDS ORDERED: Warfarin 2 MG Tab PO ONE (14:00)
== END 2017-06-09 12:39 | DRG 861 ==
LOC: DL.MS 14:42 → UNDOADMIN 14:42 → DL.MS 15:47
PROVIDERS: ADMIT Hospitalist; ATTEND Hospitalist
DX: R53.1 Weakness (principal); R53.81 Other malaise; R53.83 Other fatigue; J90 Pleural effusion, not elsewhere classified; Z94.4 Liver transplant status; K21.9 Gastro-esophageal reflux disease without esophagitis; G89.29 Other chronic pain; M54.9 Dorsalgia, unspecified; M35.9 Systemic involvement of connective tissue, unspecified; I82.621 Acute embolism and thrombosis of deep veins of right upper extremity; E87.2 Acidosis; F41.9 Anxiety disorder, unspecified; D70.2 Other drug-induced agranulocytosis; T45.1X5A Adverse effect of antineoplastic and immunosuppressive drugs, initial encounter; T38.0X5A Adverse effect of glucocorticoids and synthetic analogues, initial encounter; D50.0 Iron deficiency anemia secondary to blood loss (chronic); D63.8 Anemia in other chronic diseases classified elsewhere; R10.9 Unspecified abdominal pain; Z79.899 Other long term (current) drug therapy
CPT/HCPCS: 36415; 71046; 80048; 83880; 84100; 85025; 85027; 85610; 97110-GO; 97110-GP; 97116-GP; 97166-GO; 97530-GO; A9270-GY

== ENCOUNTER 2017-06-26 12:21 | Emergency (ER) | payer BC, MEDICARE ==
[2017-06-26 13:15] VITALS: BP 134/76
[2017-06-26] MEDS ORDERED: Morphine 2 MG/ML Syringe IVPUSH ONE (13:36)
--- NOTE | 2017-06-26 13:41 | EDM.PDOC ---
ED HPI GENERAL MEDICAL PROBLEM - General Chief Complaint: Abdominal Pain Stated Complaint: CHEST PAIN Time Seen by Provider: 06/26/17 13:02 Source of Information: Reports: Patient, Family History Limitations: Reports: No Limitations - History of Present Illness INITIAL COMMENTS - FREE TEXT/NARRATIVE: This 56 yo female patient reports to the ED with increased shortness of breath and right upper abdominal pain. The patient reports that she has a past history of a liver transplant. The patient was recently in [facility] for 2 weeks due to abdominal pain, fluid in her lungs and fluid in her abdomen, but was discharged on Sunday. The patient reports she continued to have pain and shortness of breath at discharge. The patient attempted to get into her primary care facility today, but was not able to get an appointment. The patient reports she called [facility] and was advised to come to the ED for evaluation and possible transport to [facility]. The patient's daughter was with the patient in the ED. The daughter just wants her mother to have some pain relief and make sure nothing else is happening. Duration: Week(s):, Constant, Getting Worse Location: Reports: Chest, Abdomen Quality: Reports: Ache, Sharp, Stabbing Severity: Severe Improves with: Reports: Medication Worsens with: Reports: Other (palpation) Context: Reports: Other Associated Symptoms: Reports: Shortness of Breath, Other (abdominal pain) Right Upper Abdomen Pain Score (Numeric/FACES): 8 - Related Data Allergies Allergy/AdvReac Type Severity Reaction Status Date / Time No Known Allergies Allergy Verified 06/21/15 17:16 Home Meds: Home Meds Pantoprazole Sodium 40 mg PO DAILY 04/11/15 [History] Ondansetron [Zofran ODT] 4 mg PO Q6H PRN 05/21/15 [History] Multivitamin [Multi-Day Vitamins] 1 tab PO DAILY 03/07/17 [History] LORazepam 0.5 mg PO TID PRN 06/04/17 [History] Magnesium Oxide 400 mg PO BID 06/04/17 [History] Metoprolol Succinate [Toprol XL] 12.5 mg PO DAILY 06/04/17 [History] Mycophenolate Mofetil [Cellcept] 1,000 mg PO BID 06/04/17 [History] Polyethylene Glycol 3350 [MiraLAX] 17 g PO DAILY PRN 06/04/17 [History] Sertraline [Zoloft] 50 mg PO DAILY 06/04/17 [History] Tacrolimus [Prograf] 2 mg PO BID 06/04/17 [History] Warfarin [Coumadin] 1 mg PO BEDTIME 06/04/17 [History] predniSONE [Prednisone] 5 mg PO DAILY 06/04/17 [History] valGANciclovir [Valcyte] 450 mg PO BEDTIME 06/04/17 [History] Aspirin 81 mg PO DAILY 06/06/17 [History] Acetaminophen [Tylenol] 325 mg PO Q6H PRN tablet 06/09/17 [Rx] Pantoprazole [ProTONIX] 1 tab PO DAILY 06/26/17 [History] Phosphorus #1 [K-Phos Neutral Tablet] 250 mg PO BID 06/26/17 [History] Past Medical History HEENT History: Reports: None Cardiovascular History: Reports: Afib, Other (See Below) Other Cardiovascular History: a-fib after surgery 03/19/17 Respiratory History: Reports: None Gastrointestinal History: Reports: Cirrhosis, GERD, Other (See Below) Other Gastrointestinal History: autoimmune disease affecting liver Genitourinary History: Reports: Other (See Below) Other Genitourinary History: 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, benign 2013 [employer]IOR [employer] History: Reports: None Musculoskeletal History: Reports: Back Pain, Chronic, Other (See Below) Other Musculoskeletal History: DDD Neurological History: Reports: None Psychiatric History: Reports: None Endocrine/Metabolic History: Reports: Obesity/BMI 30+ Hematologic History: Reports: Blood Transfusion(s) Immunologic History: Reports: Other (See Below) Other Immunologic History: Auto-immune disease Oncologic (Cancer) History: Reports: None Dermatologic History: Reports: None - Past Surgical History HEENT Surgical History: Reports: None Cardiovascular Surgical History: Reports: None GI Surgical History: Reports: Other (See Below) Other GI Surgeries/Procedures: liver transplant 03/19/17 Female Surgical History: Reports: None Musculoskeletal Surgical History: Reports: None Social & Family History - Family History Family Medical History: Noncontributory - Tobacco Use Smoking Status *Q: Never Smoker Second Hand Smoke Exposure: No - Caffeine Use Caffeine Use: Reports: Coffee, Soda - Alcohol Use Days Per Week of Alcohol Use: 0 Number of Drinks Per Day: 1 Total Drinks Per Week: 0 - Recreational Drug Use Recreational Drug Use: No - Living Situation & Occupation Living situation: Reports: , with Spouse Occupation: Unemployed ED ROS GENERAL - Review of Systems Review Of Systems: ROS reveals no pertinent complaints other than HPI. ED EXAM, GI/ABD - Physical Exam Exam: See Below Exam Limited By: No Limitations General Appearance: Alert, WD/WN, Moderate Distress Eyes: Bilateral: Normal Appearance, EOMI Ears: Normal External Exam, Normal Canal, Hearing Grossly Normal, Normal TMs Nose: Normal Inspection, Normal Mucosa, No Blood Throat/Mouth: Normal Inspection, Normal Lips, Normal Teeth, Normal Gums, Normal Oropharynx, Normal Voice, No Airway Compromise Head: Atraumatic, Normocephalic Neck: Normal Inspection, Supple, Non-Tender, Full Range of Motion Respiratory/Chest: No Accessory Muscle Use, Chest Non-Tender, Decreased Breath Sounds (bilateral lower lobes with reduced effort) Cardiovascular: Normal Peripheral Pulses, Regular Rate, Rhythm GI/Abdominal Exam: Normal Bowel Sounds, Guarding, Tender (diffuse tenderness) (Female) Exam: Deferred Rectal (Female) Exam: Deferred Back Exam: Normal Inspection, Full Range of Motion, NT Extremities: Normal Inspection, Normal Range of Motion, Non-Tender, Normal Capillary Refill, No Pedal Edema Neurological: Alert, Oriented, CN II-XII Intact, Normal Cognition, Normal Gait, Normal Reflexes, No Motor/Sensory Deficits Psychiatric: Normal Affect, Normal Mood Skin Exam: Other (diffuse bruising bilateral upper extremities) Lymphatic: No Adenopathy Course - Vital Signs Last Recorded V/S: Last Vital Signs Temp 36.9 C 06/26/17 12:26 Pulse 78 06/26/17 12:26 Resp 20 06/26/17 12:26 BP 134/76 06/26/17 12:26 Pulse Ox 98 06/26/17 12:26 - Orders/Labs/Meds Orders: Active Orders 24 hr Category Date Time Status Abdomen Pelvis w Cont [CT] Urgent Exams 06/26/17 14:49 Ordered Chest 2V [CR] Urgent Exams 06/26/17 13:34 Ordered AMMONIA VENOUS [CHEM] Stat Lab 06/26/17 13:55 Received CULTURE BLOOD [BC] Stat Lab 06/26/17 13:50 Results LACTIC ACID [CHEM] Stat Lab 06/26/17 13:55 Received UA W/MICROSCOPIC [URIN] Stat Lab 06/26/17 13:34 Ordered Sodium Chloride 0.9% [Normal Saline] 1,000 ml Med 06/26/17 13:45 Active IV ASDIRECTED Medication Orders Sodium Chloride (Normal Saline) 1,000 mls @ 100 mls/hr IV ASDIRECTED DARIN Last Admin: 06/26/17 13:59 Dose: 100 mls/hr Labs: Laboratory Tests 06/26/17 06/26/17 06/26/17 Range/Units 13:55 13:55 15:39 WBC 1.5 L (5.0-10.0) 10^3/uL RBC 2.97 L (4.2-5.4) 10^6/uL Hgb 9.5 L D (12.0-16.0) g/dL Hct 29.4 L (37.0-47.0) % MCV 99.0 D (80-100) fL MCH 32.0 (27.0-34.0) pg MCHC 32.3 L (33.0-35.0) g/dL Plt Count 204 (150-450) 10^3/uL Neut % (Auto) 55.5 (42.2-75.2) % Lymph % (Auto) 11.8 L (20.5-50.1) % Hawkins % (Auto) 20.9 H (2-8) % Eos % (Auto) 4.6 H (1.0-3.0) % Baso % (Auto) 7.2 H (0.0-1.0) % Add Manual Diff Yes Neutrophils % (Manual) 49 (42-75) % Band Neutrophils % 15 % Lymphocytes % (Manual) 9 L (20-50) % Monocytes % (Manual) 13 H (2-8) % Eosinophils % (Manual) 2 (1-3) % Basophils % (Manual) 6 Metamyelocytes % 6 Toxic Granulation 1+ slight Sodium (135-145) mmol/L Potassium Not Reportable Chloride Not Reportable Carbon Dioxide Not Reportable Anion Gap Not Reportable BUN Not Reportable Creatinine Not Reportable Est Cr Clr Drug Dosing Not Reportable Estimated GFR (MDRD) Not Reportable BUN/Creatinine Ratio Not Reportable Glucose Not Reportable Calcium Not Reportable Magnesium Not Reportable Total Bilirubin Not Reportable AST Not Reportable ALT Not Reportable Alkaline Phosphatase Not Reportable B-Natriuretic Peptide 192 H (0-100) pg/ml Total Protein Not Reportable Albumin Not Reportable Globulin Not Reportable Albumin/Globulin Ratio Not Reportable Amylase Not Reportable Lipase Not Reportable Urine Color Yellow (YELLOW) Urine Appearance Clear (CLEAR) Urine pH 6.0 (5.0-9.0) Ur Specific Prim 1.020 (1.005-1.030) Urine Protein 30 H (NEGATIVE) Urine Glucose (UA) Negative (NEGATIVE) Urine Ketones Negative (NEGATIVE) Urine Occult Blood Negative (NEGATIVE) Urine Nitrite Negative (NEGATIVE) Urine Bilirubin Negative (NEGATIVE) Urine Urobilinogen 0.2 (0.2-1.0) mg/dL Ur Leukocyte Esterase Negative (NEGATIVE) Urine RBC 0-5 /HPF Urine WBC 0-5 (0-5/HPF) /HPF Ur Epithelial Cells Many H /HPF Urine Bacteria Few (0-FEW/HPF) /HPF Hyaline Casts Few H /LPF Granular Casts Few /LPF Urine Mucus Few H /LPF Meds: Medications Generic Name Dose Route Start Last Admin Trade Name Freq PRN Reason Stop Dose Admin Sodium Chloride 1,000 mls @ 100 mls/hr 06/26/17 13:45 06/26/17 13:59 Normal Saline IV 100 mls/hr ASDIRECTED DARIN Administration Discontinued Medications Generic Name Dose Route Start Last Admin Trade Name Freq PRN Reason Stop Dose Admin Hydromorphone HCl 0.5 mg 06/26/17 14:46 06/26/17 14:50 Dilaudid IVPUSH 06/26/17 14:47 0.5 mg ONETIME ONE Administration Iopamidol 75 ml 06/26/17 14:49 06/26/17 15:22 Isovue-300 (61%) IVPUSH 06/26/17 14:50 75 ml ONETIME ONE Administration Morphine Sulfate 2 mg 06/26/17 13:36 06/26/17 13:58 Morphine IVPUSH 06/26/17 13:37 2 mg ONETIME ONE Administration - Re-Assessments/Exams Free Text/Narrative Re-Assessment/Exam: 06/26/17 15:31 An initial call was made to [facility] regarding the patient. According to their records, the patient was to report to the nearest ED to be evaluated in order to determine the next possible steps in her care. Departure - Departure Time of Disposition: 16:20 Disposition: Home, Self-Care 01 Condition: Fair Clinical Impression: Abdominal pain Qualifiers: Abdominal location: generalized Qualified Code(s): R10.84 - Generalized abdominal pain - Discharge Information Instructions: Abdominal Pain, Adult, [id number] Forms: ED Department Discharge Care Plan Goals: The patient and family were advised of the examination, lab, x-ray and CT results during the visit. A consult call was placed to Dr. Flores (Transplant Doctor). Dr. Flores will contact the patient's director of critical care to move her appointment up to a sooner time. The patient may stop the Cellcept ( Mycophenolate Mofetil) until the visit in [place]. If the patient has any additional symptoms or concerns, the patient should follow-up with her primary care facility or return to the emergency department. - My Orders Last 24 Hours: My Active Orders 06/26/17 13:34 Chest 2V [CR] Urgent UA W/MICROSCOPIC [URIN] Stat 06/26/17 13:45 Sodium Chloride 0.9% [Normal Saline] 1,000 ml IV ASDIRECTED 06/26/17 13:50 CULTURE BLOOD [BC] Stat 06/26/17 13:55 AMMONIA VENOUS [CHEM] Stat LACTIC ACID [CHEM] Stat 06/26/17 14:49 Abdomen Pelvis w Cont [CT] Urgent - Assessment/Plan Last 24 Hours: My Active Orders 06/26/17 13:34 Chest 2V [CR] Urgent UA W/MICROSCOPIC [URIN] Stat 06/26/17 13:45 Sodium Chloride 0.9% [Normal Saline] 1,000 ml IV ASDIRECTED 06/26/17 13:50 CULTURE BLOOD [BC] Stat 06/26/17 13:55 AMMONIA VENOUS [CHEM] Stat LACTIC ACID [CHEM] Stat 06/26/17 14:49 Abdomen Pelvis w Cont [CT] Urgent
[2017-06-26] MEDS ORDERED: Sodium Chloride 0.9% 1,000 ML IV SCH (13:45)
[2017-06-26] MEDS ORDERED: HYDROmorphone 0.5 MG/0.5 ML Syringe IVPUSH ONE (14:46)
[2017-06-26] MEDS ORDERED: Iopamidol 612 MG/ML 75 ML Bottle IVPUSH ONE (14:49)
== END 2017-06-26 16:31 | disposition home or self-care (01) ==
LOC: DL.ED 12:21
DX: R10.11 Right upper quadrant pain (principal); K21.9 Gastro-esophageal reflux disease without esophagitis; Z79.899 Other long term (current) drug therapy; Z79.82 Long term (current) use of aspirin
CPT/HCPCS: 36415; 71046; 74177; 80053; 81001; 82140; 82150; 83605; 83690; 83735; 83880; 85025; 87040; 96361; 96374; 96375; 99284; J1170; J2270; J7030; Q9967

== ENCOUNTER 2017-07-09 10:58 | Emergency (ER) | payer BC, MEDICARE ==
[2017-07-09] MEDS ORDERED: Sodium Chloride 0.9% 1,000 ML IV ONE (14:01)
[2017-07-09] MEDS ORDERED: Ondansetron 4 MG/2 ML SDV IV ONE (14:01)
--- NOTE | 2017-07-09 14:07 | EDM.PDOC ---
ED HPI GENERAL MEDICAL PROBLEM - General Chief Complaint: Abdominal Pain Stated Complaint: LUMP BY INCISIONS, THROWING UP Time Seen by Provider: 07/09/17 13:50 Source of Information: Reports: Patient History Limitations: Reports: No Limitations - History of Present Illness INITIAL COMMENTS - FREE TEXT/NARRATIVE: This 56 yo female patient reports to the ED with nausea/vomiting and a "lump" by her incision (RUQ). The patient reports that she started noticing the lump this morning at about 0300. The patient reports she has attempted to get into her primary care facility, but her provider was "all booked". The patient reports that she did follow-up with the [facility] (status post liver transplant) and was given the OK to not return for 1 year. The patient reports that she is no longer nauseated. The patient reports pain in the RUQ near the area of concerns. Onset: Today Onset Date: 07/09/17 Onset Time: 03:00 Duration: Constant, Getting Worse Location: Reports: Abdomen (RUQ) Quality: Reports: Ache Severity: Moderate Improves with: Reports: None Worsens with: Reports: Other (palpation) Associated Symptoms: Reports: Nausea/Vomiting Right Upper Abdominal Pain Score (Numeric/FACES): 8 - Related Data Allergies Allergy/AdvReac Type Severity Reaction Status Date / Time No Known Allergies Allergy Verified 07/09/17 11:38 Home Meds: Home Meds Pantoprazole Sodium 40 mg PO DAILY 04/11/15 [History] Ondansetron [Zofran ODT] 4 mg PO Q6H PRN 05/21/15 [History] Multivitamin [Multi-Day Vitamins] 1 tab PO DAILY 03/07/17 [History] LORazepam 0.5 mg PO TID PRN 06/04/17 [History] Magnesium Oxide 400 mg PO BID 06/04/17 [History] Metoprolol Succinate [Toprol XL] 12.5 mg PO DAILY 06/04/17 [History] Mycophenolate Mofetil [Cellcept] 1,000 mg PO BID 06/04/17 [History] Polyethylene Glycol 3350 [MiraLAX] 17 g PO DAILY PRN 06/04/17 [History] Sertraline [Zoloft] 50 mg PO DAILY 06/04/17 [History] Tacrolimus [Prograf] 2 mg PO BID 06/04/17 [History] Warfarin [Coumadin] 1 mg PO BEDTIME 06/04/17 [History] predniSONE [Prednisone] 2.5 mg PO DAILY 06/04/17 [History] Aspirin 81 mg PO DAILY 06/06/17 [History] Acetaminophen [Tylenol] 325 mg PO Q6H PRN tablet 06/09/17 [Rx] Pantoprazole [ProTONIX] 1 tab PO DAILY 06/26/17 [History] Phosphorus #1 [K-Phos Neutral Tablet] 250 mg PO BID 06/26/17 [History] Past Medical History HEENT History: Reports: None Cardiovascular History: Reports: Afib, Other (See Below) Other Cardiovascular History: a-fib after surgery 03/19/17 Respiratory History: Reports: None Gastrointestinal History: Reports: Cirrhosis, GERD, Other (See Below) Other Gastrointestinal History: autoimmune disease affecting liver Genitourinary History: Reports: Other (See Below) Other Genitourinary History: 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, benign 2013 [employer] History: Reports: None Musculoskeletal History: Reports: Back Pain, Chronic, Other (See Below) Other Musculoskeletal History: DDD Neurological History: Reports: None Psychiatric History: Reports: None Endocrine/Metabolic History: Reports: Obesity/BMI 30+ Hematologic History: Reports: Blood Transfusion(s) Immunologic History: Reports: Other (See Below) Other Immunologic History: Auto-immune disease Oncologic (Cancer) History: Reports: None Dermatologic History: Reports: None - Past Surgical History HEENT Surgical History: Reports: None Cardiovascular Surgical History: Reports: None GI Surgical History: Reports: Other (See Below) Other GI Surgeries/Procedures: liver transplant 03/19/17 Female Surgical History: Reports: None Musculoskeletal Surgical History: Reports: None Social & Family History - Family History Family Medical History: Noncontributory - Tobacco Use Smoking Status *Q: Never Smoker Second Hand Smoke Exposure: No - Caffeine Use Caffeine Use: Reports: Coffee, Soda - Alcohol Use Days Per Week of Alcohol Use: 0 Number of Drinks Per Day: 1 Total Drinks Per Week: 0 - Recreational Drug Use Recreational Drug Use: No - Living Situation & Occupation Living situation: Reports: , with Spouse Occupation: Unemployed ED ROS GENERAL - Review of Systems Review Of Systems: ROS reveals no pertinent complaints other than HPI. ED EXAM, GI/ABD - Physical Exam Exam: See Below Exam Limited By: No Limitations General Appearance: Alert, WD/WN, Mild Distress Eyes: Bilateral: Normal Appearance, EOMI Ears: Normal External Exam, Normal Canal, Hearing Grossly Normal, Normal TMs Nose: Normal Inspection, Normal Mucosa, No Blood Throat/Mouth: Normal Inspection, Normal Lips, Normal Teeth, Normal Gums, Normal Oropharynx, Normal Voice, No Airway Compromise Head: Atraumatic, Normocephalic Neck: Normal Inspection, Supple, Non-Tender, Full Range of Motion Respiratory/Chest: No Respiratory Distress, Lungs Clear, Normal Breath Sounds, No Accessory Muscle Use, Chest Non-Tender Cardiovascular: Normal Peripheral Pulses, Regular Rate, Rhythm, No Edema, No Gallop, No JVD, No Murmur, No Rub GI/Abdominal Exam: Normal Bowel Sounds, Soft, No Distention, No Abnormal Bruit, Pelvis Stable, Tender (RUQ), Mass (There is an firm area in her RUQ near the surgical wound. The patient reports pain with palpation of the area. The patient reports she noticed the hard area after vomiting several times during the night. ) (Female) Exam: Deferred Rectal (Female) Exam: Deferred Back Exam: Normal Inspection, Full Range of Motion, NT Extremities: Normal Inspection, Normal Range of Motion, Non-Tender, Normal Capillary Refill, No Pedal Edema Neurological: Alert, Oriented, CN II-XII Intact, Normal Cognition, Normal Gait, Normal Reflexes, No Motor/Sensory Deficits Psychiatric: Normal Affect, Normal Mood Skin Exam: Warm, Dry, Intact, Normal Color, No Rash Lymphatic: No Adenopathy Course - Vital Signs Last Recorded V/S: Last Vital Signs Temp 36.7 C 07/09/17 17:15 Pulse 89 07/09/17 17:15 Resp 18 07/09/17 17:15 BP 161/79 H 07/09/17 17:15 Pulse Ox 97 07/09/17 17:15 - Orders/Labs/Meds Orders: Active Orders 24 hr Category Date Time Status Sodium Chloride 0.9% @ 125 MLS/HR (1000ml) Med 07/09/17 17:30 Ordered Sodium Chloride 0.9% [Normal Saline] 1,000 ml IV ASDIRECTED Medication Orders Sodium Chloride (Normal Saline) 1,000 mls @ 125 mls/hr IV ASDIRECTED DARIN Last Admin: 07/09/17 17:26 Dose: 125 mls/hr Labs: Laboratory Tests 07/09/17 07/09/17 Range/Units 14:10 14:10 WBC 1.0 L* (5.0-10.0) 10^3/uL RBC 3.49 L (4.2-5.4) 10^6/uL Hgb 11.4 L D (12.0-16.0) g/dL Hct 34.1 L (37.0-47.0) % MCV 97.7 (80-100) fL MCH 32.7 (27.0-34.0) pg MCHC 33.4 (33.0-35.0) g/dL Plt Count 230 (150-450) 10^3/uL Neut % (Auto) 59.2 (42.2-75.2) % Lymph % (Auto) 15.5 L (20.5-50.1) % [place] % (Auto) 24.3 H (2-8) % Eos % (Auto) 0.0 L (1.0-3.0) % Baso % (Auto) 1.0 (0.0-1.0) % Add Manual Diff Yes Neutrophils % (Manual) 42 (42-75) % Band Neutrophils % 12 % Lymphocytes % (Manual) 26 (20-50) % Atypical Lymphs % 20 % Sodium 136 (135-145) mmol/L Potassium 3.1 L D (3.6-5.0) mmol/L Chloride 105 (101-111) mmol/L Carbon Dioxide 21.0 (21.0-31.0) mmol/L Anion Gap 13.1 BUN 10 (7-18) mg/dL Creatinine 0.6 (0.6-1.3) mg/dL Est Cr Clr Drug Dosing 76.10 mL/min Estimated GFR (MDRD) > 60 BUN/Creatinine Ratio 16.66 Glucose 196 H (74-105) mg/dL Calcium 8.5 (8.4-10.2) mg/dl Total Bilirubin 1.0 (0.2-1.0) mg/dL AST 40 (10-42) IU/L ALT 30 (10-60) IU/L Alkaline Phosphatase 85 (42-121) IU/L Total Protein 5.4 L (6.7-8.2) g/dl Albumin 3.0 L (3.2-5.5) g/dl Globulin 2.4 Albumin/Globulin Ratio 1.25 Meds: Medications Generic Name Dose Route Start Last Admin Trade Name Freq PRN Reason Stop Dose Admin Sodium Chloride 1,000 mls @ 125 mls/hr 07/09/17 17:30 07/09/17 17:26 Normal Saline IV 125 mls/hr ASDIRECTED DARIN Administration Discontinued Medications Generic Name Dose Route Start Last Admin Trade Name Freq PRN Reason Stop Dose Admin Hydromorphone HCl 0.5 mg 07/09/17 17:22 07/09/17 17:26 Dilaudid IVPUSH 07/09/17 17:23 0.5 mg ONETIME ONE Administration Sodium Chloride 1,000 mls @ 500 mls/hr 07/09/17 14:01 07/09/17 14:20 Normal Saline IV 07/09/17 16:00 500 mls/hr .BOLUS ONE Administration Morphine Sulfate 2 mg 07/09/17 15:57 07/09/17 16:11 Morphine IVPUSH 07/09/17 15:58 2 mg ONETIME ONE Administration Morphine Sulfate 2 mg 07/09/17 17:02 07/09/17 17:07 Morphine IVPUSH 07/09/17 17:03 2 mg ONETIME ONE Administration Ondansetron HCl 4 mg 07/09/17 14:01 07/09/17 14:20 Zofran IV 07/09/17 14:02 4 mg ONETIME ONE Administration - Re-Assessments/Exams Free Text/Narrative Re-Assessment/Exam: 07/09/17 17:33 Called [facility] spoke with 1 call and surgery at 1600. [facility] declined surgery due to recent liver transplant at 1620. Called [facility] regarding surgical intervention at 1620. Dr. Barnes ([facility]) declined due to recent liver transplant at 1708. Called [facility] at 1710 regarding patient. [facility] advised that they will return the call. Departure - Departure Time of Disposition: 18:30 Disposition: DC/Tfer to Acute Hospital 02 Condition: Serious Clinical Impression: Incarcerated hernia of abdominal cavity - Discharge Information Forms: Interfacility Transfer EMTALA Care Plan Goals: Discussed the history, examination, lab and CT results with Dr. Rodriguez ([facility]). Dr. Rodriugez accepted the patient for continued evaluation and further management. The patient will be transported by [facility]. - My Orders Last 24 Hours: My Active Orders 07/09/17 17:30 Sodium Chloride 0.9% @ 125 MLS/HR (1000ml) Sodium Chloride 0.9% [Normal Saline] 1,000 ml IV ASDIRECTED - Assessment/Plan Last 24 Hours: My Active Orders 07/09/17 17:30 Sodium Chloride 0.9% @ 125 MLS/HR (1000ml) Sodium Chloride 0.9% [Normal Saline] 1,000 ml IV ASDIRECTED
[2017-07-09 14:38] LABS: CHLORIDE,CL 105 mmol/L (101-111); SODIUM,NA 136 mmol/L (135-145)
[2017-07-09] MEDS ORDERED: Morphine 2 MG/ML Syringe IVPUSH ONE ×2 (15:57→17:02)
--- NOTE | 2017-07-09 16:08 | CT ---
Clinical history: 56-year-old 122 pound female with remote history of "liver transplant" (on anti-rej ection drugs) complaining now of right upper quadrant pain (palpable "bumps" along suture line). TECHNIQUE: Volume acquisition of data from the abdomen and pelvis obtained without oral or IV contras t were patient was lying supine on the Siemens multi slice scanner [place], [place]. All data archived in the PACS system for storage, reformatting axial/sagittal/coronal planes and study. Interpretation: Normal. 1. Focal 3 cm diameter ventral wall defect anteriorly right upper quadrant (lateral margin of the sut ure line) with incarcerated loop of small bowel and associated signs of early mechanical small bowel obstruction. Note is 4.5 cm "knuckle" of small bowel herniated into the soft tissues RUQ appears to have some jose atous wall thickening. 2. Midline with epigastric and left lateral suture line LUQ are intact. Small liver with subcapsular fluid collection posteriorly. 3. Asymmetric dependent pleural effusion, on the right. Small ascitic fluid collection in the depende nt pelvis. 4. Several small renal cortical cysts. No sign of nephrolithiasis or obstructive uropathy. 5. Midline uterus (periuterine calcifications). No pelvic or abdominal mass lesion, signs of mesenter ic/retroperitoneal lymphadenopathy, or free intraperitoneal air. 6. Normal caliber unenhanced liver. Osteoporotic lumbar spine. Marginal spondylosis but otherwise neg ative spine exam. CONCLUSION: Sutural herniation RUQ with incarceration small bowel loop and associated signs of mechan ical bowel obstruction. ER provider notified promptly results of this critical study.
[2017-07-09 17:16] VITALS: BP 161/79
[2017-07-09] MEDS ORDERED: HYDROmorphone 0.5 MG/0.5 ML Syringe IVPUSH ONE (17:22)
[2017-07-09] MEDS ORDERED: Sodium Chloride 0.9% 1,000 ML IV SCH (17:30)
== END 2017-07-09 18:42 ==
LOC: DL.ED 10:58
DX: K46.0 Unspecified abdominal hernia with obstruction, without gangrene (principal); Z79.899 Other long term (current) drug therapy; Z79.82 Long term (current) use of aspirin
CPT/HCPCS: 36415; 74176; 80053; 83605; 85025; 96361; 96374; 96375; 96376; 99285; J1170; J2270; J2405; J7030

== ENCOUNTER 2018-11-18 14:20 | Emergency (ER) | payer MEDICARE ==
--- NOTE | 2018-11-18 14:40 | EDM.PDOC ---
"ED HPI GENERAL MEDICAL PROBLEM - General Chief Complaint: Abdominal Pain Stated Complaint: COMPLICATIONS WITH STINTS Time Seen by Provider: 11/18/18 14:40 Source of Information: Reports: Patient, Old Records, RN, RN Notes Reviewed History Limitations: Reports: No Limitations - History of Present Illness INITIAL COMMENTS - FREE TEXT/NARRATIVE: Pt presents to the ER having been sent from [facility] with complaints of left leg swelling and right sided abdominal pain with swelling similar to past ascites. She states that she recently returned from [place] after having 2 hepatic duct stents placed on 11/11/18, one in her biliary duct but isn't sure where the other one was placed. She had lab done at [facility] this morning. Pt states she presented to [facility] to have her symptoms checked out, but was told that there is nothing they can do for her in clinic, and to go to the ER. She denies fever, chills, vomiting, diarrhea, black, blood, or melanotic stools. She has a large bruise on the dorsum of the left foot and doesn't recall bumping it. Pt has Hx of a liver transplant in 2018. Onset: Today, Gradual Duration: Constant Location: Reports: Abdomen, Lower Extremity, Left Quality: Reports: Ache Severity: Moderate Improves with: Reports: None Worsens with: Reports: None Right Abdomen Pain Score (Numeric/FACES): 3 - Related Data Allergies Allergy/AdvReac Type Severity Reaction Status Date / Time No Known Allergies Allergy Verified 09/02/17 13:26 Home Meds: Home Meds Ondansetron [Zofran ODT] 4 mg PO Q6H PRN 05/21/15 [History] Multivitamin [Multi-Day Vitamins] 1 tab PO DAILY 03/07/17 [History] LORazepam 0.5 mg PO TID PRN 06/04/17 [History] Magnesium Oxide 400 mg PO BIDMEALS 06/04/17 [History] Metoprolol Succinate [Toprol XL] 12.5 mg PO DAILY 06/04/17 [History] Mycophenolate Mofetil [Cellcept] 1,000 mg PO BIDMEALS 06/04/17 [History] Polyethylene Glycol 3350 [MiraLAX] 17 gm PO DAILY PRN 06/04/17 [History] Sertraline [Zoloft] 50 mg PO BEDTIME 06/04/17 [History] Tacrolimus [Prograf] 2 mg PO BIDMEALS 06/04/17 [History] Warfarin [Coumadin] 1 mg PO BEDTIME 06/04/17 [History] predniSONE [Prednisone] 2.5 mg PO DAILY 06/04/17 [History] Aspirin 81 mg PO DAILY 06/06/17 [History] Acetaminophen [Tylenol] 325 mg PO Q6H PRN tablet 06/09/17 [Rx] Pantoprazole [ProTONIX] 40 mg PO ACBREAKFAST 06/26/17 [History] Sod Phos Di, Cascade/K Phos Cascade [K-Phos Neutral Tablet] 250 mg PO BIDMEALS [History] Past Medical History HEENT History: Reports: None Cardiovascular History: Reports: Afib, Other (See Below) Other Cardiovascular History: a-fib after surgery 03/19/17 Respiratory History: Reports: None Gastrointestinal History: Reports: Cirrhosis, GERD, Other (See Below) Other Gastrointestinal History: autoimmune disease affecting liver Genitourinary History: Reports: Other (See Below) Other Genitourinary History: 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, benign 2013 [employer] History: Reports: None Musculoskeletal History: Reports: Back Pain, Chronic, Other (See Below) Other Musculoskeletal History: DDD Neurological History: Reports: None Psychiatric History: Reports: None Endocrine/Metabolic History: Reports: Obesity/BMI 30+ Hematologic History: Reports: Blood Transfusion(s) Immunologic History: Reports: Other (See Below) Other Immunologic History: Auto-immune disease Oncologic (Cancer) History: Reports: None Dermatologic History: Reports: None - Past Surgical History HEENT Surgical History: Reports: None Cardiovascular Surgical History: Reports: None GI Surgical History: Reports: Other (See Below) Other GI Surgeries/Procedures: liver transplant 03/19/17 Female Surgical History: Reports: None Musculoskeletal Surgical History: Reports: None Dermatological Surgical History: Reports: None Social & Family History - Family History Family Medical History: Noncontributory - Caffeine Use Caffeine Use: Reports: Coffee, Soda - Living Situation & Occupation Living situation: Reports: , with Spouse Occupation: Unemployed ED ROS GENERAL - Review of Systems Review Of Systems: ROS reveals no pertinent complaints other than HPI. ED EXAM, GI/ABD - Physical Exam Exam: See Below Exam Limited By: No Limitations General Appearance: Alert, No Apparent Distress, Other (Chronically ill appearing) Eyes: Bilateral: Normal Appearance (No scleral icterus) Ears: Normal External Exam Nose: Normal Inspection, Normal Mucosa, No Blood Throat/Mouth: Normal Inspection, Normal Lips, Normal Voice, No Airway Compromise Head: Atraumatic, Normocephalic Neck: Normal Inspection, Supple, Non-Tender, Full Range of Motion Respiratory/Chest: No Respiratory Distress, Lungs Clear, Normal Breath Sounds, No Accessory Muscle Use, Chest Non-Tender Cardiovascular: Regular Rate, Rhythm GI/Abdominal Exam: Normal Bowel Sounds, Soft, No Distention, No Abnormal Bruit, Rebound, Tender (At RUQ and mildly tender at RLQ. Old, well healed surgical scars present on the anterior abdomen.). No: Guarding, Rigid (Female) Exam: Deferred Rectal (Female) Exam: Deferred Back Exam: Normal Inspection, Full Range of Motion Extremities: Normal Range of Motion, Other (Hematoma to dorsum of the left foot. Mild tenderness and slight swelling to the left lower leg. ). No: Gen' s Sign, Increased Warmth Neurological: Alert, Oriented, CN II-XII Intact, No Motor/Sensory Deficits Psychiatric: Normal Mood Skin Exam: Warm, Dry, Other (Chronic appearing patchy ecchymosis to B/L upper extremities.) Course - Vital Signs Last Recorded V/S: Last Vital Signs Temp 98.7 F 11/18/18 14:47 Pulse 74 11/18/18 14:47 Resp 16 11/18/18 14:47 BP 104/70 11/18/18 14:47 Pulse Ox 99 11/18/18 14:47 - Orders/Labs/Meds Orders: Active Orders 24 hr Category Date Time Status Peripheral IV Care [RC] . DIRECTED Care 11/18/18 14:49 Active Sodium Chloride 0.9% [Saline Flush] Med 11/18/18 14:49 Active 10 ml FLUSH ASDIRECTED PRN Peripheral IV Insertion Adult [OM.PC] Stat Oth 11/18/18 14:49 Ordered Medication Orders Sodium Chloride (Saline Flush) 10 ml FLUSH ASDIRECTED PRN PRN Reason: Keep Vein Open Last Admin: 11/18/18 15:09 Dose: 10 ml Labs: Laboratory Tests 11/18/18 Range/Units 15:01 Amylase 72 (28-100) U/L Lipase 66 H (22-51) U/L 09/09/19 from [facility] BUN 32, Sodium 142, Potassium 3.9, Chloride 106, C02 24.5, glucose 89, creatinine 1.1, calcium 9.2, anion gap 11.5, albumin 3.50, alkaline phosphatase 540, AST 50, ALT 57, bilirubin total 0.6, protein 6.7, GFR calculated 51. Protime 18.1 and INR 1.5 White blood count: 3.42, red blood cell count 3.66, hemoglobin 11.9, hematocrit 36.7, MCV 100.3, MCH 32.5, MCHC 32.4, RDW 52.1, platelets 124, MPV 12.0. Meds: Medications Generic Name Dose Route Start Last Admin Trade Name Freq PRN Reason Stop Dose Admin Sodium Chloride 10 ml 11/18/18 14:49 11/18/18 15:09 Saline Flush FLUSH 10 ml ASDIRECTED PRN Administration Keep Vein Open Discontinued Medications Generic Name Dose Route Start Last Admin Trade Name Freq PRN Reason Stop Dose Admin Hydromorphone HCl 1 mg 11/18/18 14:49 11/18/18 15:10 Dilaudid IVPUSH 11/18/18 14:50 1 mg ONETIME ONE Administration Hydromorphone HCl 1 mg 11/18/18 16:43 11/18/18 16:50 Dilaudid IVPUSH 11/18/18 16:44 1 mg ONETIME ONE Administration Iopamidol 75 ml 11/18/18 15:26 11/18/18 15:27 Isovue-300 (61%) IVPUSH 11/18/18 15:27 75 ml ONETIME ONE Administration Ondansetron HCl 4 mg 11/18/18 14:49 11/18/18 15:09 Zofran IV 11/18/18 14:50 4 mg ONETIME ONE Administration Ondansetron HCl 4 mg 11/18/18 16:43 11/18/18 16:50 Zofran IV 11/18/18 16:44 4 mg ONETIME ONE Administration - Radiology Interpretation Free Text/Narrative:: [facility] Final Radiology Report Call: [phone] assistance Online chat: [email or web address] Name: MIKI MIXON Age: 58Years F Date: 11/18/2018 SSN: -- : 1960 Study: CT ABDOMEN/PELVIS W Requesting Physician: NATACHA MCCAIN Images: [id number] Addl Studies: Provided Clinical History: Contrast: With Contrast Medium: Isovue 300 Contrast Amount: 75 mL Contrast Method: IV Page 1 of 3 EXAM: CT Abdomen and Pelvis With Contrast EXAM DATE/TIME: 11/18/2018 3:10 PM CLINICAL HISTORY: 58 years old, female; Other: RT sided abdominal pain; Prior surgery; Surgery date: 3-7 days postoperative; Surgery type: Liver transplant 2017, stent placed Sunday TECHNIQUE: Imaging protocol: Computed tomography of the abdomen and pelvis with intravenous contrast. Radiation optimization: All CT scans at this facility use at least one of these dose optimization techniques: automated exposure control; mA and/or kV adjustment per patient size (includes targeted exams where dose is matched to clinical indication); or iterative reconstruction. Contrast material: ISOVUE 300; Contrast volume: 75 ml; Contrast route: IV; COMPARISON: CT Abdomen Pelvis wo Cont 07/09/2017 3:17 PM, CT abdomen and pelvis with contrast 06/26/2017. FINDINGS: Lungs: Mild bibasilar atelectasis. Pleural space: Small right pleural effusion, decreased. Liver: 1.5 x 1.7 cm fluid attenuation collection in the inferior right hepatic lobe (series 2, image 25), abutting the tip of the one of the biliary stents. There is no definite rim enhancement to suggest abscess, but abscess is not entirely excluded. This may represent a chronic or acute postprocedural fluid collection. MIKI MIXON | Final Radiology Report Page 2 of 3 Gallbladder and bile ducts: 2 new biliary stents extend from the dominick hepatis, along the course of the common duct, and into the proximal duodenum. Small amount of pneumobilia, most likely related to presence of the biliary stents. Pancreas: Unremarkable. Spleen: Unremarkable. Adrenals: Unremarkable. Kidneys and ureters: Portions of the left mid ureter are not opacified with contrast on the delayed images, limiting evaluation for urothelial lesions and filling defects. Several unchanged fat containing left renal masses, with the largest measuring up to 3.7 x 2.7 cm, most likely representing angiomyolipomas. Tiny subcentimeter low-attenuation lesion(s) in the upper pole of the right kidney, too small to characterize, likely simple cyst(s). Stomach and bowel: Unremarkable. Appendix: Appendix is not seen, and may be surgically absent. Suggest clinical correlation. No pericecal soft tissue stranding. Intraperitoneal space: No free intraperitoneal fluid or gas. Vasculature: Mild atherosclerotic calcification of the aorta. Lymph nodes: No lymphadenopathy. Bladder: Decompressed bladder. Reproductive: Small amount of non-specific calcification along the ventral aspect of the uterus, not appreciably changed. Bones/joints: Subcentimeter bony sclerotic lesion(s), which in the absence of known malignancy, likely represent bone island(s). Moderate compression deformity of T12, progressed, with some fragmentation seen on the sagittal images, suggesting that it may be acute or subacute. There is mild retropulsion of the fracture fragments into the spinal canal at T12-L1, mildly narrowing the spinal canal. New moderate age-indeterminate compression deformities of L1, L2, L3 and L4. Soft tissues: New 3 x 2 cm umbilical hernia which contains fluid. Mild unchanged herniation of intraabdominal fat through an incomplete defect in the right upper quadrant lateral abdominal wall musculature (series 2, image 35). IMPRESSION: 1. 2 new biliary stents extend from the dominick hepatis, along the course of the common duct, and into the proximal duodenum. Small amount of pneumobilia, most likely related to presence of the biliary stents. 2. 1.5 x 1.7 cm fluid attenuation collection in the inferior right hepatic lobe (series 2, image 25), abutting the tip of the one of the biliary stents. There is no definite rim enhancement to suggest abscess, but abscess is not entirely excluded. This may represent a chronic or acute postprocedural fluid collection. There was a larger fluid attenuation collection in this location on the 06/26/2017 and 07/09/2017 studies, although it appeared to represent biliary ductal dilatation versus a postoperative fluid collection on the prior studies. 3. Moderate compression deformity of T12, progressed, with some fragmentation seen on the sagittal images, suggesting that it may be acute or subacute. There is mild retropulsion of the fracture fragments into the spinal canal at T12, mildly narrowing the spinal canal. New moderate ageindeterminate compression deformities of L1, L2, L3 and L4. These findings could be more definitively characterized with MRI, if clinically indicated. 4. New 3 x 2 cm umbilical hernia which contains fluid. 5. Small right pleural effusion, decreased. 6. Multiple stable left renal angiomyolipomas. MIKI MIXON | Final Radiology Report CONFIDENTIALITY STATEMENT This report is intended only for use by the referring physician, and only in accordance with law. If you received this in error, call [phone]. Page 3 of 3 COMMENT: Consistent with the [employer]'s Incidental Findings Committee Report (J Am Elizabeth Radiol 2010): Unless the patient's specific circumstances suggest otherwise , any liver lesion 0.5 cm or less, any cystic kidney lesion less than 1.0 cm, and/or any adrenal lesion 1.0 cm or less not otherwise characterized in this report as possessing suspicious or indeterminate imaging features is/are highly likely to be benign and do not require follow-up imaging or biopsy. Thank you for allowing us to participate in the care of your patient. Dictated and Authenticated by: Randy Ramirez MD 11/18/2018 4:48 PM Central Time ([place] & [place]) [facility] Final Radiology Report Call: [phone] assistance Online chat: [email or web address] Name: MIKI MIXON Age: 58Years F Date: 11/18/2018 SSN: -- : 1960 Study: US DUPLEX EXTREM [facility]INS [facility] Requesting Physician: NATACHA MCCAIN Images: 26 Addl Studies: Provided Clinical History: Contrast: Without Contrast Medium: Contrast Amount: Contrast Method: Page 1 of 2 EXAM: US Duplex Left Lower Extremity Veins, Limited EXAM DATE/TIME: 11/18/2018 3:25 PM CLINICAL HISTORY: 58 years old, female; Edema, localized and other: Pain lt leg; Lower extremity, left; Patient HX: Left leg swelling/pain, recent surgery for ductal stenosis stent placement, HX of liver transplant 03/2017 TECHNIQUE: Imaging protocol: Real-time Duplex ultrasound of the Left Lower Extremity with 2 -D patton scale, color Doppler flow and spectral waveform analysis with image documentation. Limited exam focused on the left lower extremity veins. COMPARISON: No relevant prior studies available. FINDINGS: Left deep veins: Unremarkable. The common femoral, superficial femoral, popliteal, posterior tibial, and peroneal veins are patent without thrombus. Normal Doppler waveforms. Normal compressibility and/or augmentation response. Left superficial veins: Unremarkable. Saphenofemoral junction is patent without thrombus. Soft tissues: Unremarkable. IMPRESSION: No acute findings. No evidence of deep vein thrombosis. Thank you for allowing us to participate in the care of your patient. MIKI MIXON | Final Radiology Report CONFIDENTIALITY STATEMENT This report is intended only for use by the referring physician, and only in accordance with law. If you received this in error, call [phone]. Page 2 of 2 Dictated and Authenticated by: Randy Ramirez MD 11/18/2018 4:51 PM Central Time ([place] & [place]) - Re-Assessments/Exams Free Text/Narrative Re-Assessment/Exam: 11/18/18 17:[address] Wade via [facility]. He reviewed the case and current symptoms, lab results, VS, and CT Abd/Pelvis, and LLE Venous Doppler. He advises no change in treatment at this time, but will have the pt repeat her labs in 1 week. Departure - Departure Time of Disposition: 17:19 Disposition: Home, Self-Care 01 Condition: Fair Clinical Impression: Postoperative abdominal pain, Hematoma - Discharge Information *PRESCRIPTION DRUG MONITORING PROGRAM REVIEWED*: No *COPY OF PRESCRIPTION DRUG MONITORING REPORT IN PATIENT SUZANNE: No Instructions: Abdominal Pain, Adult, [id number], Hematoma, [id number] Forms: ED Department Discharge Additional Instructions: Continue your current medications as prescribed. Follow up in clinic for repeat labs in one week. Call [facility] tomorrow to update them on how your are feeling. - My Orders Last 24 Hours: My Active Orders 11/18/18 14:49 Peripheral IV Care [RC] . DIRECTED Sodium Chloride 0.9% [Saline Flush] 10 ml FLUSH ASDIRECTED PRN Peripheral IV Insertion Adult [OM.PC] Stat - Assessment/Plan Last 24 Hours: My Active Orders 11/18/18 14:49 Peripheral IV Care [RC] . DIRECTED Sodium Chloride 0.9% [Saline Flush] 10 ml FLUSH ASDIRECTED PRN Peripheral IV Insertion Adult [OM.PC] Stat"
[2018-11-18] MEDS ORDERED: Sodium Chloride 0.9% 10 ML Syringe FLUSH PRN (14:49)
[2018-11-18] MEDS ORDERED: HYDROmorphone 1 MG/ML Syringe IVPUSH ONE ×2 (14:49→16:43)
[2018-11-18] MEDS ORDERED: Ondansetron 4 MG/2 ML SDV IV ONE ×2 (14:49→16:43)
[2018-11-18] MEDS ORDERED: Iopamidol 612 MG/ML 75 ML Bottle IVPUSH ONE (15:26)
[2018-11-18 17:49] VITALS: BP 111/61; PULSE 78
== END 2018-11-18 17:40 | disposition home or self-care (01) ==
LOC: DL.ED 14:20
DX: M96.840 Postprocedural hematoma of a musculoskeletal structure following a musculoskeletal system procedure (principal); K91.870 Postprocedural hematoma of a digestive system organ or structure following a digestive system procedure; G89.18 Other acute postprocedural pain; R10.9 Unspecified abdominal pain; K21.9 Gastro-esophageal reflux disease without esophagitis; Z79.899 Other long term (current) drug therapy; Z79.01 Long term (current) use of anticoagulants; Z96.89 Presence of other specified functional implants
CPT/HCPCS: 36415; 74177; 82150; 83690; 93971; 96374; 96375; 96376; 99284; J1170; J2405; Q9967